=== PATIENT | female | born 1945 | race Caucasian/White ===

== ENCOUNTER 2022-02-27 12:44 | Emergency (ER) | payer MEDICARE ==
[2022-02-27] MEDS: HYDROmorphone 1 MG/ML Syringe IM ONE (13:19)
[2022-02-27 13:55] LABS: ANION GAP 10.2 mmol/L (5-15)
[2022-02-27 14:59] VITALS: BP 113/75; PULSE 76
== END 2022-02-27 15:45 | disposition home or self-care (01) ==
LOC: EDBD 12:44 → KA.ED 12:44
DX: S42.291A Other displaced fracture of upper end of right humerus, initial encounter for closed fracture (principal); I10 Essential (primary) hypertension; E78.00 Pure hypercholesterolemia, unspecified; Z88.0 Allergy status to penicillin; W01.198A Fall on same level from slipping, tripping and stumbling with subsequent striking against other object, initial encounter
CPT/HCPCS: 36415; 73030-RT; 80053; 85025; 96372; 99283; 99284-25; J1170